=== PATIENT | male | born 1990 | race Caucasian/White ===

== ENCOUNTER 2016-12-11 15:54 | Emergency (ER) | payer SELFPAY ==
[~2016-12-11] VITALS: Ht 188 cm; Wt 113.4 kg
[2016-12-11] MEDS ORDERED: PEN-VEE K,VEET500 MG PO (18:50)
[2016-12-11 18:57] VITALS: BP 119/85
== END 2016-12-11 18:58 | disposition home or self-care (01) ==
LOC: EME 15:54
DX: K08.89 Other specified disorders of teeth and supporting structures (principal)
CPT/HCPCS: 99281; 99284